=== PATIENT | male | born 1965 | race Caucasian/White ===

== ENCOUNTER 2024-07-10 10:39 | Inpatient (IN) | payer MEDICAID ==
[~2024-07-10] VITALS: Ht 165.1 cm; Wt 108.6 kg
[2024-07-10 10:59] VITALS: BP 183/115; PULSE 133; RESP 14; TEMP 98.2; O2SAT 86
[2024-07-10 11:21] LABS: BASOPHILS % (AUTO) 0.1 % (0.0-2.0); HEMOGLOBIN 16.8 g/dL (12.0-18.0); LYMPHOCYTES # (AUTO) 0.8 K/uL (2.0-11.5); LYMPHOCYTES % (AUTO) 5.8 % (20.5-51.1); MEAN CORPUSCULAR HEMOGLOBIN 32 pg (27-31); MEAN CORPUSCULAR HGB CONC 34 g/dL (33-37); MEAN CORPUSCULAR VOLUME 95.8 fL (80-94); MONOCYTES # (AUTO) 0.5 K/uL (0.8-1.0); MONOCYTES % (AUTO) 3.7 % (1.7-9.3); NEUTROPHILS # (AUTO) 12.7 K/uL (1.8-7.7); NEUTROPHILS % (AUTO) 90.4 % (42.2-75.2); PLATELET COUNT (AUTO) 232 K/uL (140-450); RED BLOOD CELL COUNT(AUTO) 5.22 MIL/uL (4.20-6.10); RED CELL DISTRIBUTION WIDTH 13.4 % (11.6-13.7); WHITE BLOOD COUNT (AUTO) 14.1 K/uL (4.8-10.8)
[2024-07-10 11:42] LABS: ALANINE AMINOTRANSFERASE 59 U/L (12-78); ALBUMIN 3.9 g/dL (3.4-5.0); ALKALINE PHOSPHATASE 73 U/L (50-136); ANION GAP 18.8 (8-16); ASPARTATE AMINOTRANSFERASE 58 U/L (15-37); CALCIUM 8.5 mg/dL (8.5-10.1); CARBON DIOXIDE 23.2 mmol/L (21-32); CHLORIDE 102 mmol/L (98-107); CREATININE 1.7 mg/dL (0.6-1.3); GFR ARICAN-AMERICAN 53 mL/min (>90); GFR NON ARICAN-AMERICAN 44 mL/min (>90); GLUCOSE 220 mg/dL (74-106); LIPASE 41 U/L (16-77); SODIUM SERUM 139 mmol/L (136-145); TOTAL BILIRUBIN 0.3 mg/dL (0.0-1.0); TOTAL PROTEIN, SERUM 8.2 g/dL (6.4-8.2); UREA NITROGEN, BLOOD 14 mg/dL (7-18)
[2024-07-10 11:51] LABS: SALICYLATE < 2.8 mg/dL (2.8-20.0)
[2024-07-10] MEDS: NACL 0.9% 1,000 ML IV ONE (11:54)
[2024-07-10 12:11] LABS: ACETAMINOPHEN < 0.5 ug/ml (10-30); ALCOHOL, BLOOD < 3 mg/dL (<10)
[2024-07-10 12:55] VITALS: O2SAT 86
[2024-07-10] MEDS ORDERED: LORazepam 2 MG/ML VIAL ONE (13:01)
[2024-07-10] MEDS ORDERED: ONDANSETRON 4 MG/2 ML VIAL IVP PRN (13:40)
[2024-07-10] MEDS ORDERED: ACETAMINOPHEN 325 MG TAB PO PRN (13:40)
[2024-07-10] MEDS ORDERED: LORazepam 2 MG/ML VIAL IVP PRN (13:40)
[2024-07-10] MEDS ORDERED: ALBUTEROL 0.083% 2.5 MG/3 ML NEBU INH PRN (13:40)
[2024-07-10 14:23] LABS: PHOSPHORUS 5.4 mg/dL (2.5-4.9)
[2024-07-10] MEDS: NACL 0.9% 1,000 ML IV SCH (16:02)
[2024-07-10] MEDS: LORazepam 2 MG/ML VIAL IVP ONE (16:03)
[2024-07-10 18:23] LABS: BLOOD GAS BASE EXCESS -8.2 mmol/L (-2.0-3.0); BLOOD GAS HCO3 21.6 mmol/L (21.0-28.0); BLOOD GAS PCO2 60.5 mmHg (35.0-48.0); BLOOD GAS PO2 65.7 mmHg (83.0-108.0)
[2024-07-10 18:24] LABS: BLOOD GAS O2 SAT% 91.4 % (94.0-98.0)
[2024-07-10 18:37] VITALS: PULSE 136; RESP 19; O2SAT 96
[2024-07-10 20:39] LABS: AMPHETAMINE, URINE NEGATIVE ng/ml (NEG <=1000); BARBITURATE, URINE NEGATIVE ng/ml (NEG <=200); BENZODIAZEPINE, URINE NEGATIVE ng/mL (NEG <=200); CANNABINOID, URINE NEGATIVE ng/mL (NEG <=50); COCAINE, URINE NEGATIVE ng/mL (NEG <=300); OPIATE, URINE NEGATIVE ng/mL (NEG <=2000); PHENCYCLIDINE SCREEN,URINE NEGATIVE ng/mL (NEG <=25)
[2024-07-10 20:41] VITALS: O2SAT 94
[2024-07-10 21:59] VITALS: O2SAT 93
[2024-07-10 22:02] LABS: BLOOD GAS BASE EXCESS -5.6 mmol/L (-2.0-3.0); BLOOD GAS HCO3 22.6 mmol/L (21.0-28.0)
[2024-07-10] MEDS: levETIRAcetam 500 MG in NACL 0.9% 100 ML IV SCH (22:30)
[2024-07-10] MEDS: levETIRAcetam 100 MG/ML VIAL IV ONE (22:33)
[2024-07-10 23:59] VITALS: O2SAT 93
[2024-07-11] VITALS (12 sets, daily range): BP systolic 143–161; BP diastolic 60–78; PULSE 87–122; RESP 14–20; TEMP 97.2–98.8; O2SAT 91–97
[2024-07-11 07:09] LABS: MAGNESIUM 2.5 mg/dL (1.8-2.4); PHOSPHORUS 3.4 mg/dL (2.5-4.9)
[2024-07-11 07:12] LABS: ANION GAP 15.5 (8-16); CARBON DIOXIDE 25.1 mmol/L (21-32); CREATININE 1.7 mg/dL (0.6-1.3); POTASSIUM 4.6 mmol/L (3.5-5.1)
[2024-07-11 07:31] LABS: BASOPHILS % (AUTO) 0.1 % (0.0-2.0); HEMATOCRIT 45.1 % (36-52); HEMOGLOBIN 15.2 g/dL (12.0-18.0); LYMPHOCYTES # (AUTO) 0.6 K/uL (2.0-11.5); LYMPHOCYTES % (AUTO) 4.7 % (20.5-51.1); MEAN CORPUSCULAR HEMOGLOBIN 32 pg (27-31); MEAN CORPUSCULAR HGB CONC 34 g/dL (33-37); MEAN CORPUSCULAR VOLUME 95.6 fL (80-94); MONOCYTES % (AUTO) 7.7 % (1.7-9.3); NEUTROPHILS # (AUTO) 11.4 K/uL (1.8-7.7); NEUTROPHILS % (AUTO) 87.5 % (42.2-75.2); PLATELET COUNT (AUTO) 197 K/uL (140-450); RED BLOOD CELL COUNT(AUTO) 4.72 MIL/uL (4.20-6.10); RED CELL DISTRIBUTION WIDTH 13.5 % (11.6-13.7)
[2024-07-11] MEDS ORDERED: POTASSIUM CHL 40 MEQ/ D5-1/2NS 250 ML IV SCH (08:10)
[2024-07-11] MEDS: METOPROLOL 50 MG TAB PO SCH ×2 (13:02→20:10)
[2024-07-11 13:12] LABS: BLOOD GAS BASE EXCESS -0.2 mmol/L (-2.0-3.0); BLOOD GAS HCO3 27.4 mmol/L (21.0-28.0); BLOOD GAS PCO2 55.9 mmHg (35.0-48.0); BLOOD GAS PH 7.308 (7.350-7.450); BLOOD GAS PO2 102.8 mmHg (83.0-108.0)
[2024-07-11 13:13] LABS: BLOOD GAS O2 SAT% 98.3 % (94.0-98.0)
[2024-07-12] VITALS: BP 148/82; PULSE 86; PULSE 99; RESP 18; TEMP 97.9; O2SAT 94
[2024-07-12] MEDS ORDERED: PANTOPRAZOLE 40 MG INJ VIAL IVP SCH (09:00)
[2024-07-12] MEDS ORDERED: SERTRALINE 50 MG TAB PO SCH (09:00)
== END 2024-07-12 02:05 | disposition left against medical advice (07) | DRG 817 ==
LOC: MED 10:39 → MTU 13:40 → MIC 07-11 05:33 → MTU 07-11 22:25
PROVIDERS: ADMIT Student in an Organized Health Care Education/Training Program; ATTEND Student in an Organized Health Care Education/Training Program
PROC: 5A09357 Assistance with Respiratory Ventilation, Less than 24 Consecutive Hours, Continuous Positive Airway Pressure (ICD-10-PCS; 2024-07-10)
PROC: 5A09357 Assistance with Respiratory Ventilation, Less than 24 Consecutive Hours, Continuous Positive Airway Pressure (ICD-10-PCS; 2024-07-11)
PROC: 4A00X4Z Measurement of Central Nervous Electrical Activity, External Approach (ICD-10-PCS; principal; 2024-07-12)
DX: T40.422A Poisoning by tramadol, intentional self-harm, initial encounter (principal); E87.20 Acidosis, unspecified; R45.851 Suicidal ideations; R65.10 Systemic inflammatory response syndrome (SIRS) of non-infectious origin without acute organ dysfunction; R56.9 Unspecified convulsions; T38.0X2A Poisoning by glucocorticoids and synthetic analogues, intentional self-harm, initial encounter; E66.01 Morbid (severe) obesity due to excess calories; F32.A Depression, unspecified; I10 Essential (primary) hypertension; Z91.199 Patient's noncompliance with other medical treatment and regimen due to unspecified reason; Y92.89 Other specified places as the place of occurrence of the external cause
CPT/HCPCS: 36415; 36600; 71045; 80048; 80053; 80305; 82803; 83690; 83735; 84100; 85025; 87081; 93005; 95816; 96360; 99291; G0480; G0482; J1953; J2060; Q0092